=== PATIENT | male | born 1985 | race Caucasian/White ===

== ENCOUNTER 2020-06-18 09:35 | Emergency (ER) | payer SELFPAY ==
[~2020-06-18] VITALS: Ht 182.9 cm; Wt 81.7 kg
[2020-06-18] MEDS ORDERED: PREDNISONE20 MG PO (10:21)
[2020-06-18] MEDS ORDERED: VENTOLIN HFA18 GM INH (10:21)
== END 2020-06-18 10:30 | disposition home or self-care (01) ==
LOC: ED 09:35
DX: U07.1 COVID-19 (principal); J98.01 Acute bronchospasm
CPT/HCPCS: 94640; 94664; 99285; 99406; C9803; J7512; U0003

== ENCOUNTER 2024-06-09 15:21 | Emergency (ER) | payer OTHER ==
[~2024-06-09] VITALS: Ht 182.9 cm; Wt 85.5 kg
[~2024-06-09 15:21] MED LIST: PREDNISONE20 MG PO; VENTOLIN HFA18 GM INH
[2024-06-09 16:09] VITALS: BP 138/88
== END 2024-06-09 16:09 | disposition home or self-care (01) ==
LOC: ED 15:21
DX: G56.03 Carpal tunnel syndrome, bilateral upper limbs (principal); F17.200 Nicotine dependence, unspecified, uncomplicated
CPT/HCPCS: 99283